=== PATIENT | male | born 1955 | race Caucasian/White ===

== ENCOUNTER → 2016-06-16 | Outpatient (REF) | payer OTHER ==
[2016-06-16 16:12] LABS: BILIRUBIN,URINE Negative (Negative); CLARITY,URINE Clear; COLOR,URINE Yellow; GLUCOSE, URINE (UA) Negative (Negative); LEUKOCYTE ESTERASE, URINE Negative (Negative); UROBILINOGEN,URINE 0.2 mg/dL (0.2-1.0)
[2016-06-16 16:25] LABS: ALBUMIN 4.3 g/dL (3.4-5.0); ANION GAP 17.2 MEQ/L (3-15); CALCULATED IONIZED CALCIUM 4.6 mg/dL (3.8-4.6); TOTAL PROTEIN 7.2 g/dL (6.4-8.5)
[2016-06-16 16:39] LABS: RBC,URINE 0-2 /HPF; URINE CENTRIFUGED VOLUME 12 mL
[2016-06-17 22:32] LABS: HEPATITIS A ANTIBODY IGM Negative; HEPATITIS B CORE ABY IGM Negative; HEPATITIS B SURFACE ANTIGEN C Negative
== END ==
LOC: LAB 15:34
PROVIDERS: ATTEND Nurse Practitioner Family
DX: I10 Essential (primary) hypertension (principal); R53.83 Other fatigue; R74.8 Abnormal levels of other serum enzymes
CPT/HCPCS: 80053; 80061; 80074; 81003; 81015; 84443

== ENCOUNTER → 2016-06-17 | Outpatient (CLI) | payer OTHER ==
[2016-06-17 15:06] LABS: BASOPHILS % (AUTO) 0 % (0-2); EOSINOPHILS # (AUTO) 0.1 10^3uL; EOSINOPHILS % (AUTO) 0 % (0-4); MEAN PLATELET VOLUME 10.3 FL (6.0-9.5); MONOCYTES % (AUTO) 12 % (3-11); NEUTROPHILS # (AUTO) 12.3 X10^3; NEUTROPHILS % (AUTO) 74 % (51-67); PLATELET COUNT 599 10^3uL (150-450); WHITE BLOOD COUNT 16.48 10^3uL (4.0-11.0)
[2016-06-17 15:07] LABS: MEAN CORPUSCULAR HEMOGLOBIN 36.3 PG (26.0-34.0); MEAN CORPUSCULAR HGB CONC 35.9 g/dL (31.0-37.0); MEAN CORPUSCULAR VOLUME 101 FL (80-100)
== END ==
LOC: LAB 12:08
PROVIDERS: ATTEND Nurse Practitioner Family
DX: I10 Essential (primary) hypertension (principal); R53.83 Other fatigue
CPT/HCPCS: 36415; 85025

== ENCOUNTER 2016-07-06 20:50 | Emergency (ER) | payer OTHER ==
[~2016-07-06] VITALS: Ht 177.8 cm; Wt 85.2 kg
--- OUTSIDE RECORDS SUMMARY | 2016-07-06 20:54 | XMS REPORT | Continuity of Care Document ---
Author Author [facility] Address Unknown Phone Unavailable Allergies Medications Problems Date Dx Coded Attending Type Code Diagnosis Diagnosed By 01/26/1057 STEPHANIE RINCON, WILLIE Bustamante Ot M54.5 LOW BACK PAIN 01/26/1057 STEPHANIE RINCON, WILLIE Bustamante Ot S39.012D STRAIN OF MUSCLE, FASCIA AND TENDON OF L 01/26/1057 STEPHANIE RINCON, WILLIE Bustamante Ot X58.XXXD EXPOSURE TO OTHER SPECIFIED FACTORS, SUB 01/26/1057 STEPHANIE RINCON, WILLIE Bustamante Ot Y93.H2 ACTIVITY, GARDENING AND LANDSCAPING 12/10/2014 STEPHANIE RINCON, WILLIE Bustamante Ot I10 12/10/2014 STEPHANIE RINCON, WILLIE Bustamante Ot Z13.220 12/19/2014 STEPHANIE RINCON, WILLIE Bustamante Ot I10 12/19/2014 STEPHANIE RINCON, WILLIE Bustamante Ot Z13.220 05/19/2015 STEPHANIE RINCON, WILLIE Bustamante Ot I10 05/19/2015 STEPHANIE RINCON, WILLIE Bustamante Ot Z13.220 05/21/[facility] TECHNICAL SUPPORT TECHNICIAN Ot E83.52 05/21/2015 [facility], AXEL L TECHNICAL SUPPORT TECHNICIAN Ot M25.551 06/05/2015 [facility]EL [facility] TECHNICAL SUPPORT TECHNICIAN Ot M25.551 06/05/2015 [facility] AXEL L TECHNICAL SUPPORT TECHNICIAN Ot E83.52 06/05/2015 [facility] AXEL L TECHNICAL SUPPORT TECHNICIAN Ot M25.551 06/11/2015 STEPHANIE RINCON, WILLIE Bustamante Ot M54.5 06/11/2015 STEPHANIE RINCON, WILLIE Bustamante Ot S39.012D 06/11/2015 STEPHANIE RINCON, WILLIE Bustamante Ot X58.XXXD 06/11/2015 STEPHANIE RINCON, WILLIE Bustamante Ot Y93.H2 06/11/2015 WILLIE BROWN MD Ot M54.5 06/11/2015 WILLIE BROWN MD Ot S39.012D 06/11/2015 WILLIE BROWN MD Ot X58.XXXD 06/11/2015 WILLIE BROWN MD Ot Y93.H2 06/12/2015 WILLIE BROWN MD Ot M54.5 LOW BACK PAIN 06/12/2015 WILLIE BROWN MD Ot S39.012D STRAIN OF MUSCLE, FASCIA AND TENDON OF L 06/12/2015 WILLIE BROWN MD Ot X58.XXXD EXPOSURE TO OTHER SPECIFIED FACTORS, SUB 06/12/2015 WILLIE BROWN MD Ot Y93.H2 ACTIVITY, GARDENING AND LANDSCAPING 06/24/2016 [facility], AXEL L TECHNICAL SUPPORT TECHNICIAN Ot I10 ESSENTIAL (PRIMARY) HYPERTENSION 06/24/2016 [facility], AXEL L TECHNICAL SUPPORT TECHNICIAN Ot R53.83 OTHER FATIGUE 06/24/2016 [facility], AXEL L TECHNICAL SUPPORT TECHNICIAN Ot I10 ESSENTIAL (PRIMARY) HYPERTENSION 06/24/2016 [facility], AXEL L TECHNICAL SUPPORT TECHNICIAN Ot R53.83 OTHER FATIGUE 06/24/2016 [facility], AXEL L TECHNICAL SUPPORT TECHNICIAN Ot R74.8 ABNORMAL LEVELS OF OTHER SERUM ENZYMES Procedures Results Test Result Range UA (urinalysis) - 06/16/16 15:35 COLLECTION METHOD CLEAN CATCH Color of urine by auto Yellow Urine appearance determination Clear Urine pH measurement by automated test strip 7.0 5.0 - 8.0 Specific gravity of urine by automated test strip 1.015 1.005-1.030 PROTEIN, URINE Negative Urine glucose detection by automated test strip Negative Negative Urine erythrocytes count by automated test strip (number/volume) Trace-intact Negative Urine ketones detection by automated test strip Negative Negative NITRITE,URINE Negative Negative Urine total bilirubin detection by automated test strip Negative Negative Urine urobilinogen measurement by automated test strip (mass/volume) 0.2 0.2-1.0 Urine leukocyte esterase detection by dipstick Negative Negative Microscopic examination of urine - 06/16/16 15:35 Urine volume measurement 12 mL Urine erythrocytes detection by automated method 0-2 Automated urine sediment leukocyte count by microscopy (number/high power field ) Bacteria None Seen Negative SQUAMOUS EPITHELIAL CELL,UR 0-2 MUCOUS,URINE 1+ Hyaline casts detection in urine sediment by light microscopy 1+ Comprehensive metabolic panel - 06/16/16 15:35 Sodium measurement 103 70-110 CARBON DIOXIDE 23 22-29 Serum or plasma anion gap 17.2 3-15 BLOOD UREA NITROGEN 9 7-18 CREATININE SERUM 0.75 0.8-1.5 Brucella species antibody panel (IgG, IgM) 12 10-20 Estimated glomerular filtration rate (GFR) 128.1 Estimated glomerular filtration rate (GFR) non- 105.9 OSMOLALITY,CALCULATED 251 280-300 CALCIUM 10.4 8.8-10.8 Calculated ionized calcium measurement 4.6 3.8-4.6 BILIRUBIN,TOTAL 2.5 0.1-1.0 Serum or plasma alkaline phosphatase measurement 99 38-126 ASPARTATE AMINO TRANSFERASE 72 15-37 ALANINE AMINOTRANSFERASE 67 30-65 Serum or plasma total protein measurement 7.2 6.4-8.5 Serum or plasma albumin measurement 4.3 3.4-5.0 Serum or plasma albumin/globulin mass ratio 1.482 1.1-1.8 THYROID STIMULATING HORMONE* - 06/16/16 15:35 THYROID STIMULATING HORMONE 1.35 0.46- 4.68 LIPID PANEL - 06/16/16 15:35 Cholesterol 165 50-200 HDL Cholesterol 97 40-60 Triglycerides 193 10-150 LDL CHOLESTEROL 29 50-130 VLDL Cholesterol, calc 39 4.00-40.00 Cholesterol.total/Cholesterol.in HDL 1.7 0.0-5.0 HEPATITIS PANEL - 06/16/16 15:35 Serum or plasma hepatitis A virus IgM antibody detection by immunoassay Negative Serum or plasma hepatitis B virus core IgM antibody detection by immunoassay Negative * Serum or plasma hepatitis C virus antibody signal/cutoff by immunoassay Negative Complete blood count (CBC) with automated white blood cell (WBC) differential - 06/17/16 12:03 Blood automated leukocyte count 16.48 4.0-11.0 Erythrocytes 4.11 4.50-5.50 12.0-16.0;g/dL 14.9 13.5-17.0 Hematocrit 41.50 39.00-50.00 Automated erythrocyte mean corpuscular volume 101 80-100 Mean corpuscular hemoglobin (MCH) determination 36.3 26.0-34.0 Automated erythrocyte mean corpuscular hemoglobin concentration measurement ( mass/volume) 35.9 31.0-37.0 Erythrocyte distribution width 13.4 11.8 -15.6 Automated blood platelet count 599 150- 450 Automated blood platelet mean volume measurement 10.3 6.0-9.5 Automated neutrophil percentage 74 51- 67 Lymphocytes/100 leukocytes 12 20-46 Automated monocyte percentage 12 3-11 Eosinophil count auto 0 0-4 Automated basophil percentage 0 0-2 Automated blood neutrophil count 12.3 Blood lymphocytes count (number/volume) 2.0 Automated blood monocyte count 2.0 Blood absolute eosinophil count 0.1 Basophils 0.1 Encounters ACCT No. Visit Date/Time Discharge Status Pt. Type Provider Facility Loc./Unit Complaint [id number] 05/14/2015 10:30:00 2015 10:58:00 DIS Outpatient STEPHANIE RINCON, [facility] PT [id number] 12/04/2014 11:28:00 2014 23:59:59 CLS Outpatient STEPHANIE RINCON, [facility] LAB [id number] 06/17/2016 12:08:00 ACT Outpatient [facility] LAB [id number] 06/16/2016 15:34:00 ACT Outpatient [facility] LAB DROP OFF FROM [facility] [id number] 05/19/2015 17:26:00 ACT Outpatient [facility] RAD [id number] 05/19/2015 17:15:00 ACT Outpatient [facility] LAB
--- OUTSIDE RECORDS SUMMARY | 2016-07-06 20:56 | XMS REPORT | Continuity of Care Document ---
Author Author [facility] Address Unknown Phone Unavailable Allergies Medications Problems [...] STEPHANIE RINCON, WILLIE Bustamante Ot Z13.220 05/21/[facility] HOSP[facility] EDUCATOR Ot E83.52 05/21/2015 [facility], AXEL L HOSPITAL EDUCATOR Ot M25.551 06/05/2015 [facility], AXEL L HOSPITAL EDUCATOR Ot M25.551 06/05/2015 [facility], AXEL L HOSPITAL EDUCATOR Ot E83.52 06/05/2015 [facility], AXEL L HOSPITAL EDUCATOR Ot M25.551 06/11/2015 STEPHANIE RINCON, WILLIE Bustamante [...] GARDENING AND LANDSCAPING 06/24/2016 [facility], AXEL L HOSPITAL EDUCATOR Ot I10 ESSENTIAL (PRIMARY) HYPERTENSION 06/24/2016 [facility], AXEL L HOSPITAL EDUCATOR Ot R53.83 OTHER FATIGUE 06/24/2016 [facility], AXEL L HOSPITAL EDUCATOR Ot I10 ESSENTIAL (PRIMARY) HYPERTENSION 06/24/2016 [facility], AXEL L HOSPITAL EDUCATOR Ot R53.83 OTHER FATIGUE 06/24/2016 [facility], AXEL L HOSPITAL EDUCATOR Ot R74.8 ABNORMAL LEVELS OF OTHER SERUM [...] Status Pt. Type Provider Facility Loc./Unit Complaint [id number] 05/14/2015 10:30:00 2015 10:58:00 DIS Outpatient STEPHANIE RINCON, [facility] PT [id number] 12/04/2014 11:28:00 2014 23:59:59 CLS Outpatient STEPHANIE RINCON, [facility] LAB [id number] 06/17/2016 12:08:00 ACT Outpatient [facility] LAB [id number] 06/16/2016 15:34:00 ACT Outpatient [facility] LAB DROP OFF FROM [facility] [id number] 05/19/2015 17:26:00 ACT Outpatient [facility] RAD [id number] 05/19/2015 17:15:00 ACT Outpatient [facility] LAB
[2016-07-06] MEDS ORDERED: MTP50T PO (21:05)
[2016-07-06] MEDS ORDERED: ASPI81TA55 PO (21:05)
[2016-07-06] MEDS ORDERED: LOSA1TAB69 PO (21:05)
[2016-07-06 21:40] LABS: MEAN CORPUSCULAR VOLUME 97 FL (80-100); PLATELET COUNT 635 10^3uL (150-450); WHITE BLOOD COUNT 9.65 10^3uL (4.0-11.0)
[2016-07-06 21:41] LABS: MEAN CORPUSCULAR HGB CONC 37.3 g/dL (31.0-37.0)
[2016-07-06 21:53] LABS: ALBUMIN 3.9 g/dL (3.4-5.0); ALKALINE PHOSPHATASE 64 U/L (38-126); ANION GAP 13.7 MEQ/L (3-15); BUN/CREATININE RATIO 13 (10-20); CALCULATED IONIZED CALCIUM 4.4 mg/dL (3.8-4.6)
[2016-07-06 21:57] LABS: BAND NEUTROPHILS % 1 % (0-6); LYMPHOCYTES # 2.5 #; SEGMENTED NEUTROPHILS % 54 % (51-67)
[2016-07-06 21:58] LABS: EOSINOPHILS % 1 % (0-4); MONOCYTES # 1.5 #; MONOCYTES % 17 % (3-11); RBC MORPH NORMAL (NORMAL); TOTAL CELLS COUNTED 100
[2016-07-06 22:55] LABS: AMPHETAMINE SCREEN, URINE Negative (Negative); CANNABINOID SCREEN, URINE Negative (Negative); METHAMPHETAMINE SCREEN URINE S NEGATIVE (NEGATIVE); OPIATE SCREEN URINE Negative (Negative); PROPOXYPHENE STAT NEGATIVE (NEGATIVE)
[2016-07-06 23:10] VITALS: BP 144/70
[2016-07-06] MEDS ORDERED: SODIUM CHLORIDE FLUSH 10 ML SYR IV PRN (23:55)
--- NOTE | 2016-07-07 05:28 | Diagnostic Imaging Report ---
INDICATION: Chest pain. Portable chest at 9:46 p.m. FINDINGS: Heart size and pulmonary vascularity are normal. Lungs are clear. There are no effusions or pneumothoraces. IMPRESSION: Negative chest. Dictated by: Dictated on workstation # [id number]
== END 2016-07-06 23:09 | disposition home or self-care (01) ==
LOC: ED 20:52
DX: I10 Essential (primary) hypertension (principal); Z87.891 Personal history of nicotine dependence
CPT/HCPCS: 36415; 71010; 80053; 80307; 80320; 83735; 84484; 85007; 85025; 85379; 85610; 85730; 93005; 93010; 99284